=== PATIENT | female | born 1995 | race Caucasian/White ===

== ENCOUNTER 2017-05-25 19:24 | Observation (INO) | payer OTHER ==
[~2017-05-25] VITALS: Ht 161 cm; Wt 63.5 kg
[2017-05-25 20:58] VITALS: BP 120/79
== END 2017-05-25 23:20 | disposition home or self-care (01) ==
LOC: EDBD → 4S 19:24
PROVIDERS: ADMIT Obstetrics & Gynecology; ATTEND Obstetrics & Gynecology
DX: O62.9 Abnormality of forces of labor, unspecified (principal); O26.893 Other specified pregnancy related conditions, third trimester; M54.5 Low back pain; Z3A.39 39 weeks gestation of pregnancy
CPT/HCPCS: 59025; G0378

== ENCOUNTER 2017-05-31 10:50 | Inpatient (IN) | payer OTHER ==
[~2017-05-31] VITALS: Ht 154.9 cm; Wt 62.6 kg
[2017-05-31] MEDS ORDERED: RINGERS SOLUTION,LACTATED 1,000 ML IV PRN (11:04)
[2017-05-31] MEDS ORDERED: OXYTOCIN 30 UNITS/LACT RINGERS 500 ML IV ONE (11:04)
[2017-05-31] MEDS ORDERED: PREN1TAB80 PO (11:08)
[2017-05-31] MEDS ORDERED: OXYGEN THERAPY IH SCH (11:15)
[2017-05-31] MEDS ORDERED: METOCLOPRAMIDE HCL 5 MG/ML 2 ML VIAL IVP PRN (11:15)
[2017-05-31] MEDS ORDERED: CITRIC ACID/SODIUM CITRATE 30 ML SOLUTION UDCUP PO PRN (11:15)
[2017-05-31] MEDS: RINGERS SOLUTION,LACTATED 1,000 ML IV SCH ×2 (11:18→16:29)
[2017-05-31 11:30] VITALS: BP 122/87
[2017-05-31 11:41] LABS: BASOPHILS % (AUTO) 0.2 % (0.0-2.0); EOSINOPHILS % (AUTO) 0.1 % (1.0-6.0); HEMATOCRIT 33.9 % (36-46); HEMOGLOBIN 11.4 g/dL (12.0-16.0); LYMPHOCYTES # (AUTO) 1.5 K/uL (1.0-4.8); LYMPHOCYTES % (AUTO) 14.2 % (22.0-44.0); MEAN CORPUSCULAR HEMOGLOBIN 27.7 pg (26.0-34.0); MEAN CORPUSCULAR HGB CONC 33.6 G/dL (31.0-37.0); MEAN CORPUSCULAR VOLUME 82 fL (80-100); MONOCYTES # (AUTO) 0.5 K/uL (0.1-1.0); MONOCYTES % (AUTO) 4.6 % (2.0-9.0); NEUTROPHILS # (AUTO) 8.8 K/uL (1.8-7.7); NEUTROPHILS % (AUTO) 80.9 % (40.0-70.0); PLATELET COUNT (AUTO)-OB 199 K/uL (150-450); RED BLOOD CELL COUNT(AUTO) 4.11 MIL/uL (4.00-5.20); RED CELL DISTRIBUTION WIDTH 14.1 % (11.5-14.5)
[2017-05-31] MEDS: FentaNYL CITRATE-PF 100 MCG/2 ML VIAL IVP PRN ×3 (11:51→15:22)
[2017-05-31] MEDS ORDERED: OXYTOCIN 30 UNITS/LACT RINGERS 500 ML IV PRN (12:21)
[2017-05-31] MEDS ORDERED: INFLUENZA VIRUS VACCINE QVS 2017-18 (3YR+)/PF 60 MCG/0.5 ML SYRINGE IM ONE (12:45)
[2017-05-31] MEDS ORDERED: LIDOCAINE HCL/PF 2% 5 ML VIAL ONE (15:31)
[2017-05-31] MEDS ORDERED: BUPIVACAINE HCL/PF 0.25% 10 ML VIAL ONE (15:31)
[2017-05-31] MEDS ORDERED: FentaNYL/BUPIV 0.125%/NS/PF 200 ML ED ONE (15:32)
[2017-05-31] MEDS ORDERED: LIDOCAINE HCL/PF 1% 30 ML VIAL ONE (15:32)
[2017-05-31] MEDS ORDERED: FentaNYL/BUPIV 0.125%/NS/PF 200 ML ED PRN (16:20)
[2017-05-31] MEDS ORDERED: DiphenhydrAMINE HCL 50 MG/ML VIAL IVP PRN (16:30)
[2017-05-31] MEDS ORDERED: NALBUPHINE HCL 10 MG/ML VIAL IVP PRN ×2 (16:30)
[2017-05-31] MEDS ORDERED: PROMETHAZINE HCL 12.5 MG in SODIUM CHLORIDE 0.9% 50 ML IV PRN (16:30)
[2017-05-31] MEDS ORDERED: ONDANSETRON HCL 4 MG/2 ML VIAL IVP PRN (16:30)
[2017-05-31] MEDS ORDERED: AMPICILLIN SODIUM 2 GM/NS 100 ML IV ONE (17:45)
[2017-05-31] MEDS ORDERED: MAGNESIUM HYDROXIDE SUSPENSION 30 ML UDCUP PO PRN (22:00)
[2017-05-31] MEDS ORDERED: BENZOCAINE 20%/MENTHOL 56 GM SPRAY CANISTER TP PRN (22:00)
[2017-05-31] MEDS ORDERED: GLYCERIN/WITCH HAZEL LEAF 40 PADS JAR TP PRN (22:00)
[2017-05-31] MEDS ORDERED: LANOLIN 7 GM OINTMENT TP PRN (22:00)
[2017-05-31] MEDS ORDERED: OxyCODONE HCL/ACETAMINOPHEN 5-325 MG TABLET PO PRN ×2 (22:00)
[2017-05-31] MEDS ORDERED: AMPICILLIN SODIUM 1 GM/NS 50 ML IV SCH (22:00)
[2017-05-31] MEDS: IBUPROFEN 800 MG TABLET PO PRN (23:20)
[2017-06-01] MEDS ORDERED: FentaNYL/BUPIV 0.125%/NS/PF 200 ML ED PRN (06:26)
[2017-06-01] MEDS ORDERED: DiphenhydrAMINE HCL 50 MG/ML VIAL IVP PRN (06:30)
[2017-06-01] MEDS ORDERED: PROMETHAZINE HCL 12.5 MG in SODIUM CHLORIDE 0.9% 50 ML IV PRN (06:30)
[2017-06-01] MEDS ORDERED: ONDANSETRON HCL 4 MG/2 ML VIAL IVP PRN (06:30)
[2017-06-01] MEDS ORDERED: NALBUPHINE HCL 10 MG/ML VIAL IVP PRN ×2 (06:30)
[2017-06-01 08:24] LABS: EOSINOPHILS % (AUTO) 0 % (1.0-6.0); HEMATOCRIT 28.8 % (36-46); HEMOGLOBIN 9.7 g/dL (12.0-16.0); LYMPHOCYTES # (AUTO) 1.5 K/uL (1.0-4.8); LYMPHOCYTES % (AUTO) 8.4 % (22.0-44.0); MEAN CORPUSCULAR HEMOGLOBIN 27.9 pg (26.0-34.0); MEAN CORPUSCULAR HGB CONC 33.6 G/dL (31.0-37.0); MEAN CORPUSCULAR VOLUME 83 fL (80-100); MONOCYTES # (AUTO) 0.6 K/uL (0.1-1.0); MONOCYTES % (AUTO) 3.4 % (2.0-9.0); NEUTROPHILS # (AUTO) 15.6 K/uL (1.8-7.7); PLATELET COUNT (AUTO)-OB 160 K/uL (150-450); RED BLOOD CELL COUNT(AUTO) 3.47 MIL/uL (4.00-5.20)
[2017-06-01 08:29] LABS: NEUTROPHILS % (AUTO) 88.2 % (40.0-70.0)
[2017-06-01] MEDS: IBUPROFEN 800 MG TABLET PO PRN ×2 (08:38→20:03)
[2017-06-01] MEDS ORDERED: IBUP-2071 PO (15:12)
[2017-06-01] MEDS ORDERED: FERR-89 PO (15:12)
[2017-06-01] MEDS ORDERED: DSS100 PO (15:12)
== END 2017-06-01 20:50 | disposition home or self-care (01) | DRG 775 ==
LOC: OBSVTOIN 10:50 → 4S 10:50 → EDBD 10:50
PROVIDERS: ADMIT Obstetrics & Gynecology; ATTEND Obstetrics & Gynecology
PROC: 10D07Z6 Extraction of Products of Conception, Vacuum, Via Natural or Artificial Opening (ICD-10-PCS; principal; 2017-05-31)
PROC: 0UQMXZZ Repair Vulva, External Approach (ICD-10-PCS; 2017-05-31)
PROC: 3E0R3BZ Introduction of Anesthetic Agent into Spinal Canal, Percutaneous Approach (ICD-10-PCS; 2017-05-31)
PROC: 00HU33Z Insertion of Infusion Device into Spinal Canal, Percutaneous Approach (ICD-10-PCS; 2017-05-31)
DX: O99.02 Anemia complicating childbirth (principal); D64.9 Anemia, unspecified; O70.0 First degree perineal laceration during delivery; Z23 Encounter for immunization; Z37.0 Single live birth; Z3A.40 40 weeks gestation of pregnancy
CPT/HCPCS: 90471; J0290; J2590; J3010; J3490; J7120